=== PATIENT | male | born 1995 | race Caucasian/White ===

== ENCOUNTER 2017-11-28 08:54 | Outpatient (CLI) | payer BC ==
[~2017-11-28 08:54] MED LIST: Iopamidol 370 76% 100 ML VIAL ONE
--- NOTE | 2017-11-28 11:06 | CT ---
CT ABDOMEN AND PELVIS WITH ORAL AND IV CONTRAST: Date: 11/28/17 HISTORY: Periumbilical pain, generalized abdominal pain. FINDINGS: The lung bases are clear. The liver, spleen, pancreas, adrenal glands, and kidneys are normal. No karen cified gallstones are seen. No free air, free fluid, or lymphadenopathy is identified. The urinary bl adder is well distended and grossly unremarkable. The small bowel loops are not abnormally dilated. N o abnormally dilated fluid-filled appendix is seen. No acute osseous abnormalities are noted. There i s an old fracture of the right transverse process of L1. IMPRESSION: No significant abnormalities are seen. POS: [facility]
== END 2017-11-28 08:55 | disposition home or self-care (01) ==
LOC: CT 08:54
PROVIDERS: ATTEND Internal Medicine Gastroenterology
DX: R10.33 Periumbilical pain (principal)
CPT/HCPCS: 74177